=== PATIENT | male | born 1960 | race Caucasian/White ===

== ENCOUNTER 2017-11-30 01:08 | Emergency (ER) | payer OTHER ==
[~2017-11-30] VITALS: Ht 180.3 cm; Wt 83.9 kg
[2017-11-30 02:04] LABS: Basophils # (auto) 0 uL; Basophils % (auto) 0.2 % (0.0-2.0); Eosinophils # (auto) 0 uL; Eosinophils % (auto) 0.2 % (0.0-7.0); Hemoglobin 15.1 g/dL (13.5-17.5); Lymphocytes # (auto) 0.5 uL; Lymphocytes % (auto) 3.8 % (10.0-50.0); Mean Corpuscular Hgb Conc. 33.6 g/dL (32.0-36.0); Mean Corpuscular Volume 89.4 fL (80.0-100.0); Monocytes # (auto) 0.6 uL; Neutrophils # (auto) 11.5 uL; Neutrophils % (auto) 90.8 % (37.0-80.0); Nucleated Red Blood Cells % 0.1 %; Platelet Count (auto) 275 10^3/uL (140-450); Red Blood Cells 5.03 10^6/uL (4.5-5.90); Red Cell Distribution Width 13.6 % (11.8-14.3); White Blood Cell 12.6 10^3/uL (4.4-10.8)
[2017-11-30 02:20] LABS: Alanine Aminotransferase 118 U/L (16-61); Albumin 4.1 g/dL (3.4-5.0); Amylase 369 U/L (25-115); Anion Gap 6 (5-15); Aspartate Aminotransferase 196 U/L (15-37); BUN/Creatinine Ratio 10.4; Blood Urea Nitrogen 12 mg/dL (7-18); Calcium 8.5 mg/dL (8.5-10.1); Carbon Dioxide 28 mmol/L (21-32); Chloride 104 mmol/L (98-107); GFR African American 85 mL/min; GFR Non-African American 70 mL/min; Glucose 117 mg/dL (74-106); Magnesium 2.5 mg/dL (1.6-2.6); Potassium 4.1 mmol/L (3.5-5.1); Sodium 138 mmol/L (136-145)
[2017-11-30 02:30] LABS: Alkaline Phosphatase 95 U/L (45-117); Bilirubin, Total 1.2 mg/dL (0.2-1.0); Lipase 10965 U/L (73-393); Total Protein 7.8 g/dL (6.4-8.2)
[2017-11-30] MEDS ORDERED: SODIUM CHLORIDE 0.9% 1,000 ML IV ONE ×2 (07:28)
[2017-11-30] MEDS ORDERED: VANCOMYCIN 1GM/250ML 250 ML IV ONE (07:30)
[2017-11-30] MEDS ORDERED: ONDANSETRON HCL 4 MG/2 ML VIAL IV ONE (07:30)
[2017-11-30] MEDS ORDERED: MORPHINE SULFATE 4 MG/ML SYR/VIAL IV ONE (07:30)
[2017-11-30 08:38] LABS: Urine Bacteria NONE SEEN /hpf (None Seen); Urine Blood TRACE /uL (Negative); Urine Mucus FEW (None Seen); Urine Specific Gravity 1.012 (1.001-1.035); Urine WBC 2 /hpf (0 - 3)
[2017-11-30 10:37] VITALS: BP 107/63
== END 2017-11-30 07:29 | disposition short-term general hospital (02) ==
LOC: ER 01:08 → EDBD 01:08 → ER 07:29
DX: K85.91 Acute pancreatitis with uninfected necrosis, unspecified (principal); F17.210 Nicotine dependence, cigarettes, uncomplicated; Z90.49 Acquired absence of other specified parts of digestive tract; Z88.0 Allergy status to penicillin
CPT/HCPCS: 36415; 74176; 80053; 81001; 82150; 83690; 83735; 84484; 85025; 96365; 96375; 99285; J2270; J2405; J3370; J7030